=== PATIENT | male | born 1980 ===

== ENCOUNTER 2021-05-27 14:50 | Emergency (ER) | payer MEDICAID ==
[2021-05-27 15:17] VITALS: BP 130/56
[2021-05-27 15:24] LABS: RAPID STREP SCREEN Negative (Negative)
--- NOTE | 2021-05-27 15:48 | ED Physician Documentation ---
PD HPI HEENT - Stated complaint Stated Complaint: SORE THROAT - Chief complaint Chief Complaint: Heent - History obtained from History obtained from: Patient - Additional information Additional information: For 2 weeks he has had a sore throat especially at night. It goes away during the day. There is no associated heartburn or fevers. Does have nasal congestion. No sick contacts. Review of Systems Constitutional: reports: Reviewed and negative Eyes: reports: Reviewed and negative Nose: reports: Rhinorrhea / runny nose Throat: reports: Sore throat Cardiac: denies: Chest pain / pressure, Palpitations Respiratory: denies: Dyspnea, Cough PD PAST MEDICAL HISTORY - Present Medications Home Medications: Ambulatory Orders Medication Instructions Recorded Confirmed Fluticasone [Flonase] 1 sprays STONE BID #16 gm 05/27/21 - Allergies Allergies/Adverse Reactions: Allergies Allergy/AdvReac Type Severity Reaction Status Date / Time No Known Drug Allergies Allergy Verified 05/27/21 15:04 PD ED PE NORMAL - Vitals Vital signs reviewed: Yes - General General: Alert and oriented X 3, No acute distress - HEENT HEENT: PERRL, EOMI, Other (Tonsils and anterior oropharynx appear normal, he has cobblestoning without swelling of the retropharynx. Neck is supple, no adenopathy) - Neuro Neuro: Alert and oriented X 3, Normal speech - Psych Psych: Normal mood, Normal affect Results - Vitals Vitals: Vital Signs - 24 hr 05/27/21 15:04 Temperature 36.5 C Heart Rate 60 Respiratory 16 Rate Blood Pressure 130/56 L O2 Saturation 97 Oxygen O2 Source Room air - Labs Labs: Laboratory Tests 05/27/21 15:06 Group A Strep Rapid Negative PD MEDICAL DECISION MAKING - ED course ED course: 40-year-old gentleman with 2 weeks of sore throat at night, exam is consistent with retropharyngeal inflammation. No evidence of infection and strep test is negative. Seems more likely to be postnasal drip and reflux based on other historical findings. Departure - Departure Disposition: 01 Home, Self Care Clinical Impression: Post-nasal drip Condition: Good Record reviewed to determine appropriate education?: Yes Instructions: ED Allergy Nasal Prescriptions: Fluticasone [Flonase] 1 sprays STONE BID #16 gm Comments: As discussed, based on your exam and symptoms especially with it being worse at night it is likely that your sore throat is due to postnasal drip. I sent a prescription for nasal steroids to [facility] in [place] at [address] [place] [address] for new or worsening symptoms. Follow-up with your doctor within the week for recheck. Discharge Date/Time: 05/27/21 15:58
== END 2021-05-27 15:58 | disposition home or self-care (01) ==
LOC: ED 14:50
DX: R09.82 Postnasal drip (principal)
CPT/HCPCS: 87070; 87430; 99282; 99283